=== PATIENT | female | born 1980 | race Caucasian/White ===

== ENCOUNTER 2018-05-21 20:41 | Emergency (ER) | payer MEDICAID ==
[~2018-05-21] VITALS: Ht 157.4 cm; Wt 47.6 kg
[2018-05-21] MEDS ORDERED: Motrin,Rufen800 MG PO (23:07)
[2018-05-21] MEDS ORDERED: CYCLOBENZAPRINE5 M3 PO (23:07)
== END 2018-05-21 23:11 | disposition home or self-care (01) ==
LOC: ED 20:41
DX: S39.012A Strain of muscle, fascia and tendon of lower back, initial encounter (principal); X50.1XXA Overexertion from prolonged static or awkward postures, initial encounter; Y93.89 Activity, other specified; Y92.89 Other specified places as the place of occurrence of the external cause; Y99.8 Other external cause status

== ENCOUNTER 2019-02-16 08:08 | Emergency (ER) | payer MEDICAID ==
[~2019-02-16] VITALS: Ht 157.4 cm; Wt 54.4 kg
[~2019-02-16 08:08] MED LIST: CYCLOBENZAPRINE5 M3 PO; Motrin,Rufen800 MG PO
[2019-02-16] MEDS ORDERED: FLONASE ALLERG9.9 ML NAS (09:33)
[2019-02-16] MEDS ORDERED: ZITHROMAX250 MG PO (09:33)
[2019-02-16] MEDS ORDERED: TYLENOL325 M1 PO (10:35)
[2019-02-16] MEDS ORDERED: MOTRIN 600 MG E4 TAB PO (10:35)
== END 2019-02-16 10:21 | disposition home or self-care (01) ==
LOC: ED 08:08
DX: J01.90 Acute sinusitis, unspecified (principal); F17.200 Nicotine dependence, unspecified, uncomplicated; Z79.899 Other long term (current) drug therapy